=== PATIENT | female | born 1975 | race Caucasian/White ===

== ENCOUNTER 2023-10-15 00:27 | Emergency (ER) | payer SELFPAY ==
[~2023-10-15] VITALS: Ht 177.8 cm; Wt 72.0 kg
[2023-10-15 00:45] VITALS: BP 169/82; PULSE 75; RESP 16; TEMP 99.2; O2SAT 98
[2023-10-15] MEDS: ACETAMINOPHEN 325MG TABLET PO ONE (06:39)
[2023-10-15] MEDS ORDERED: NAPR-1176 MT (06:41)
== END 2023-10-15 07:22 | disposition left against medical advice (07) ==
LOC: ER 00:27
DX: Z76.0 Encounter for issue of repeat prescription (principal)
CPT/HCPCS: 99282

== ENCOUNTER 2023-10-15 17:14 | Emergency (ER) | payer SELFPAY ==
[~2023-10-15] VITALS: Ht 167.6 cm; Wt 80.0 kg
[~2023-10-15 17:14] MED LIST: NAPR-1176 MT
[2023-10-15 17:21] VITALS: BP 136/77; PULSE 82; RESP 16; TEMP 98.6; O2SAT 98
== END 2023-10-15 18:00 | disposition left against medical advice (07) ==
LOC: ER 17:14
DX: R53.1 Weakness (principal); Z53.21 Procedure and treatment not carried out due to patient leaving prior to being seen by health care provider